=== PATIENT | male | born 1995 | race African-American/Black ===

== ENCOUNTER 2021-04-06 19:04 | Emergency (ER) | payer MEDICAID, OTHER ==
[~2021-04-06] VITALS: Ht 175.3 cm; Wt 70.0 kg
[2021-04-06] MEDS ORDERED: ALBUTEROL (0.083%) 2.5MG/3ML NEB HHN STA (22:19)
[2021-04-06] MEDS ORDERED: IPRATROPIUM BROMIDE (0.02%) 0.5MG/2.5ML NEB HHN STA (22:19)
[2021-04-06] MEDS ORDERED: PREDNISONE 20MG TABLET PO STA (22:19)
[2021-04-06] MEDS ORDERED: P50 MT (22:30)
[2021-04-06] MEDS ORDERED: ALBU6.7H9 INH (22:30)
[2021-04-06 23:49] VITALS: BP 127/76
== END 2021-04-06 23:50 | disposition home or self-care (01) ==
LOC: ER 19:04
DX: J45.901 Unspecified asthma with (acute) exacerbation (principal); F12.10 Cannabis abuse, uncomplicated
CPT/HCPCS: 71045; 94640; 99283; J7512; Z7610

== ENCOUNTER 2021-04-08 11:00 | Emergency (ER) | payer OTHER ==
[~2021-04-08] VITALS: Ht 180.3 cm; Wt 75.0 kg
[~2021-04-08 11:00] MED LIST: ALBU6.7H9 INH; P50 MT
[2021-04-08] MEDS ORDERED: ALBUTEROL (0.083%) 2.5MG/3ML NEB HHN STA (14:01)
[2021-04-08] MEDS ORDERED: IPRATROPIUM BROMIDE (0.02%) 0.5MG/2.5ML NEB HHN STA ×2 (14:01→14:04)
[2021-04-08] MEDS ORDERED: PREDNISONE 20MG TABLET PO ONE (14:15)
[2021-04-08] MEDS ORDERED: KETOROLAC 15MG/ML VIAL IV ONE (14:30)
[2021-04-08] MEDS ORDERED: P50 MT (16:35)
[2021-04-08] MEDS ORDERED: IBUP-2028 MT (16:59)
[2021-04-08 17:15] VITALS: BP 128/83
== END 2021-04-08 17:18 | disposition home or self-care (01) ==
LOC: ER 11:00
DX: J45.901 Unspecified asthma with (acute) exacerbation (principal); I49.9 Cardiac arrhythmia, unspecified
CPT/HCPCS: 71045; 93005; 94644; 96374; 99285; J1885; J7512; Z7610